=== PATIENT | female | born 1945 | race Caucasian/White ===

== ENCOUNTER 2017-04-21 10:00 | Outpatient (CLI) | payer MEDICARE, OTHER ==
--- NOTE | 2017-04-21 16:03 | DEXA Report ---
DEXA SCAN: 04/21/2017 CLINICAL INDICATION: Postmenopausal. TECHNIQUE: Dual energy x-ray absorptiometry (DXA) was performed on a [employer] system. Regions measured are the AP spine, femoral neck, and, if needed, forearm. COMPARISON: None. In accordance with the International Society for Clinical Densitometry (ISCD) guidelines, data from previous exams may be reanalyzed using current recommendations and techniques. This is done to allow a more accurate basis for comparison with the current study. FINDINGS: The data for the lumbar spine is as follows: REGION BMD (g/cm/cm) T-SCORE Z-SCORE L1 1.264 1.1 2.9 L2 1.387 1.6 3.3 L3 1.408 1.7 3.5 L4 1.375 1.5 3.2 TOTAL 1.364 1.5 3.3 NOTE: All evaluable vertebrae are used for classification. The data for the hip is as follows: REGION BMD (g/cm/cm) T-SCORE Z-SCORE Neck 0.822 -1.6 0.2 TOTAL 0.942 -0.5 1.0 NOTE: The femoral neck or total proximal femur, whichever is lowest, is used for classification. IMPRESSION: THE WHO CLASSIFICATION BASED ON THE INTERNATIONAL REFERENCE STANDARD IS OSTEOPENIA (REFERENCE LEFT FEMORAL NECK). THE FRACTURE RISK IS INCREASED. RECOMMENDATION: Patients with diagnosis of osteoporosis or osteopenia should have regular bone mineral density assessment. For those eligible for Medicare, routine testing is allowed once every 2 years. Testing frequency can be increased for patients who have rapidly progressing disease or for those who are receiving medical therapy to restore bone mass. COMMENT: World Health Organization (WHO) definitions for osteoporosis and osteopenia: NORMAL BMD: T-score at -1.0 or higher, fracture risk is low. OSTEOPENIA BMD: T-score between -1.0 and -2.5, fracture risk is increased. OSTEOPOROSIS BMD: T-score at -2.5 or lower, fracture risk high. National Osteoporosis Foundation recommends: 1. Obtain adequate dietary calcium (at least 1200 mg per day) and vitamin D (400 -800 international units per day). 2. Participate, as appropriate, in regular weightbearing and muscle- strengthening exercise. 3. Avoid tobacco use and reduce alcohol and caffeine intake. 4. For more detailed information see the website at www.NOF.org. MTDD
== END 2017-04-21 10:01 | disposition home or self-care (01) ==
LOC: DI 10:00
PROVIDERS: ATTEND Physician Assistant Medical
DX: M85.88 Other specified disorders of bone density and structure, other site (principal)
CPT/HCPCS: 77080

== ENCOUNTER 2017-04-21 10:02 | Outpatient (CLI) | payer MEDICARE, OTHER ==
--- NOTE | 2017-04-21 12:57 | Mammography Report ---
DIGITAL SCREENING MAMMOGRAM: 04/21/2017 CLINICAL INDICATION: A 71-year-old for screening. COMPARISON: 04/2016, 03/2015, 03/2014. TECHNIQUE: Routine CC and MLO projections were obtained of the breasts. FINDINGS: The breasts again demonstrate scattered fibroglandular densities. Coarse and punctate, ty pically benign calcifications are present. There is possible developing density in the right upper o uter central breast. Further evaluation with spot compression views and possible ultrasound is recom mended. No mammographically suspicious findings are appreciated in the left breast. IMPRESSION: INCOMPLETE EXAMINATION. RECOMMENDATION: Additional evaluation of the right breast as above. BI-RADS category 0, incomplete. STANDARD QUALIFYING STATEMENTS 1. This examination was reviewed with the aid of Computer-Aided Detection (CAD). 2. A negative or benign imaging report should not delay biopsy if clinically suspicious findings are present. Consider surgical consultation if warranted. More than 5% of cancers are not identified by i maging. 3. Dense breasts may obscure an underlying neoplasm. JOB #: [id number] EXT JOB #:[id number]
== END 2017-04-21 10:03 | disposition home or self-care (01) ==
LOC: DI 10:02
PROVIDERS: ATTEND Physician Assistant Medical
DX: Z12.31 Encounter for screening mammogram for malignant neoplasm of breast (principal); R92.8 Other abnormal and inconclusive findings on diagnostic imaging of breast
CPT/HCPCS: 77067

== ENCOUNTER 2017-04-24 07:59 | Outpatient (CLI) | payer MEDICARE, OTHER ==
[2017-04-24 13:00] LABS: BASOPHILS % (AUTO) 0.4 %; EOSINOPHILS # (AUTO) 0.1 10^3/uL (0.0-0.7); EOSINOPHILS % (AUTO) 1.7 %; HCT - HEMATOCRIT 40.1 % (37.0-47.0); HGB - HEMOGLOBIN 13.9 g/dL (12.0-16.0); LYMPHOCYTES # (AUTO) 1.1 10^3/uL (1.5-3.5); MEAN CORPUSCULAR HEMOGLOBIN 30.1 pg (27.0-31.0); MEAN CORPUSCULAR HGB CONC 34.7 g/dL (32.0-36.0); MEAN CORPUSCULAR VOLUME 86.9 fL (81.0-99.0); MEAN PLATELET VOLUME 8.5 fL (7.9-10.8); MONOCYTES # (AUTO) 0.4 10^3/uL (0.0-1.0); MONOCYTES % (AUTO) 8.1 %; NEUTROPHILS # (AUTO) 3.3 10^3/uL (1.5-6.6); NEUTROPHILS % (AUTO) 66.8 %; RED BLOOD COUNT 4.62 10^6/uL (4.20-5.40); RED CELL DISTRIBUTION WIDTH 14.2 % (12.0-15.0); UNCORRECTED WHITE BLOOD COUNT 4.9 x10^3/uL; WHITE BLOOD COUNT 4.9 x10^3/uL (4.8-10.8)
[2017-04-24 13:18] LABS: ALBUMIN/GLOBULIN RATIO 1.6 (1.0-2.2); BILIRUBIN,TOTAL 0.6 mg/dL (0.2-1.0); BUN - BLOOD UREA NITROGEN 17 mg/dL (6-20); CALCIUM 9.8 mg/dL (8.5-10.3); CARBON DIOXIDE - CO2 25 mmol/L (21-32); CHLORIDE 108 mmol/L (101-111); CHOL/HDL RATIO 2.3 (<4.4); CHOLESTEROL 139 mg/dL; CREATININE 0.7 mg/dL (0.4-1.0); GFR - MDRD 83 (>89); GLUCOSE 95 mg/dL (70-100); HDL CHOLESTEROL 60 mg/dL; POTASSIUM 4.4 mmol/L (3.5-5.0); SODIUM 140 mmol/L (135-145); TOTAL PROTEIN 6.8 g/dL (6.7-8.2); TRIGLYCERIDES 104 mg/dL; VLDL CHOLESTEROL 21 mg/dL
== END 2017-04-24 08:00 | disposition home or self-care (01) ==
LOC: LAB.WCP 07:59
PROVIDERS: ATTEND Physician Assistant Medical
DX: E78.2 Mixed hyperlipidemia (principal)
CPT/HCPCS: 36415; 80053; 80061; 85025

== ENCOUNTER 2017-05-27 10:21 | Outpatient (CLI) | payer MEDICARE ==
--- NOTE | 2017-05-27 12:53 | Mammography Report ---
ADDITIONAL VIEWS OF THE RIGHT BREAST: 05/27/2017 CLINICAL HISTORY: A 71-year-old female who had an asymmetrical density at the 10 o'clock position of the right breast on recent screening mammogram dated 10/2017. Patient returns for additional views of the right breast. Patient has no family history of breast cancer. Patient has no breast surgery history. COMPARISON: 02/23/2010, 02/21/2012, 02/22/2013, 04/01/2014, 04/06/2015, 2015, 04/21/2017 TECHNIQUE: Additional views of the right breast were done. These included a right mediolateral view and coned-down compression craniocaudad and oblique lateral views. FINDINGS: Additional views of the right breast once again show an asymmetrical density in the upper outer quadrant of this breast at the 10 o'clock position 4 cm superolateral to the right nipple. The finding remains unchanged on the coned-down compression oblique lateral view, but appears less prominent on the coned-down compression craniocaudad view. There is a circular radiolucency seen within the area of concern that was not noted previously. This finding may represent a subtle sign of benign fat necrosis developing in this region. Recommend a right breast ultrasound to compliment the present study. A few scattered benign-appearing calcifications are noted in the right breast. Breast parenchyma is primarily composed of fat except for the mild glandular hyperplasia and asymmetrical density in the 10 o'clock position of the anterior aspect of the right breast. IMPRESSION: ASYMMETRICAL DENSITY IS ONCE AGAIN SEEN IN THE 10 O'CLOCK POSITION OF THE RIGHT BREAST. RIGHT BREAST ULTRASOUND IS INDICATED FOR FURTHER EVALUATION. RIGHT BREAST ULTRASOUND WILL BE DONE TODAY PART OF PATIENT'S EVALUATION. BIRADS CATEGORY 0 - INCOMPLETE. NEEDS ADDITIONAL IMAGING EVALUATION. RIGHT BREAST ULTRASOUND. JOB #: [id number] EXT JOB #: [id number] [facility]
--- NOTE | 2017-05-28 09:16 | Ultrasound Report ---
RIGHT BREAST ULTRASOUND: 05/27/2017 CLINICAL HISTORY: A 71-year-old female who recently developed an asymmetrical density in the upper outer quadrant of the right breast on a screening mammogram from April 2017. Additional views of the right breast suggested the possibility of an area of benign fat necrosis. In questioning the patient in regard to recent trauma to the breast, patient reported that she had significant trauma to the right breast approximately a year ago with a large palpable hematoma. This hematoma gradually decreased in size and its remnant appears to reside in the area where the finding of concern is noted in the right breast on recent mammogram within the 10 o'clock position. Patient has a past history of aortic valve replacement with a [employer] valve. She is on warfarin anticoagulation. RIGHT BREAST ULTRASOUND FINDINGS: A mildly complex mass is noted in the 10 o' clock position of the right breast 6 cm from the nipple. This mass measures 1.9 x 1.0 cm. There is a small cystic region within the medial superior aspect of the mass. There is a noted shadowing posterior to the mass. Considering patient's clinical history, primary consideration is a benign area of fat necrosis and/or old hematoma. A secondary consideration is an atypical degenerating fibroadenoma or a carcinoma. Options for further workup in this patient who has a low probability of malignancy include a breast MRI or some form of biopsy such as a needle aspiration biopsy under ultrasound guidance. A core biopsy would require the patient to be off of her anticoagulants and on a Lovenox bridge. In discussing this with the patient, she was hesitant to do it , especially because of the low suspicion of malignancy. After extensive discussion with the patient, she preferred a breast MRI. After researching the literature, a breast MRI could be safely done on this patient in a 1.5 Rajani scanner as is present in the Radiology Department at [facility]. IMPRESSION: A 1.9 X 1.0 X 2.0 CM MINIMALLY COMPLEX MASS IS NOTED IN THE 10 O' CLOCK POSITION OF THE RIGHT BREAST. PRIMARY CONSIDERATION FOR THIS FINDING IS AN AREA OF BENIGN FAT NECROSIS OR OLD HEMATOMA, CONSIDERING PATIENT'S CLINICAL HISTORY. OPTIONS FOR FURTHER WORKUP ARE DISCUSSED ABOVE WITH THE PATIENT'S PREFERENCE BEING A CONTRAST-ENHANCED BREAST MRI. BIRADS CATEGORY 0 - INCOMPLETE. NEEDS ADDITIONAL IMAGING EVALUATION. BILATERAL BREAST MRI IS RECOMMENDED FOR FURTHER EVALUATION. COMMENT: Dr. Sawyer had an extensive discussion with the patient regarding the present findings and options for further workup including finding out the patient's preference for further workup. Also, Dr. Sawyer informed the patient 's health care provider, Jazzy Myers, Physician's Event Manager, of the above findings and recommendations. This was done on 05/27/2017 at 2:40 p.m. JOB #: [id number] EXT JOB #: [id number] [facility]
== END 2017-05-27 10:22 | disposition home or self-care (01) ==
LOC: DI 10:21
PROVIDERS: ATTEND Physician Assistant Medical
DX: N63 Unspecified lump in breast (principal)
CPT/HCPCS: 76642; G0206

== ENCOUNTER 2017-06-06 11:27 | Outpatient (CLI) | payer MEDICARE, OTHER ==
[2017-06-06 19:42] LABS: POTASSIUM 4.1 mmol/L (3.5-5.0)
[2017-06-06 19:43] LABS: CALCIUM 9.9 mg/dL (8.5-10.3); CREATININE 0.8 mg/dL (0.4-1.0)
== END 2017-06-06 11:28 | disposition home or self-care (01) ==
LOC: LAB.WCP 11:27
PROVIDERS: ATTEND Family Medicine
DX: N63 Unspecified lump in breast (principal)
CPT/HCPCS: 36415; 80048

== ENCOUNTER 2017-06-09 07:47 | Outpatient (CLI) | payer MEDICARE, OTHER ==
[2017-06-09] MEDS ORDERED: GADOBUTROL 7.5 MMOL/7.5 ML VIAL IVP ONE (08:52)
--- NOTE | 2017-06-09 13:19 | MRI Report ---
MRI BILATERAL BREASTS WITH AND WITHOUT CONTRAST: 06/09/2017 CLINICAL INDICATION: Likely old hematoma with fat necrosis on mammogram and ultrasound, further evaluation. TECHNIQUE: Using a dedicated breast coil, axial precontrast STIR, T1, dynamic postcontrast axial 3D images, axial 3D high-resolution images, and postcontrast diffusion-weighted images were obtained. Six mL of Gadavist was administered intravenously. Post-processing with dynamic contrast enhancement analysis and multiplanar reformations were performed with Gruvie. FINDINGS: Right breast: There is no significant background parenchymal enhancement. In the right upper outer quadrant, at the site of the mammographic and ultrasound abnormality, there is a small focus of necrosis with surrounding old hematoma, which demonstrates precontrast T1 hyperintensity, with no contrast enhancement following Gadavist administration. Right axillary lymph nodes are morphologically normal. Left breast: The left breast demonstrates no significant background parenchymal enhancement. No suspicious mass or abnormal enhancement is identified. Postoperative changes of previous cardiac surgery are incidentally noted. IMPRESSION: BENIGN FINDINGS. RECOMMENDATION: The patient can return to routine annual screening mammography , unless otherwise clinically indicated. BIRADS CATEGORY 2 - BENIGN FINDINGS. The patient has been instructed to obtain results from Ursula Myers PA-C, in five business days. COMMENT: Breast MRI is a highly sensitive examination, and has a cancer detection threshold down to approximately 5 mm; however, it only has moderate specificity. Although breast MRI has a high negative predictive value, appropriate clinical and mammographic followup are always necessary. MRI may miss less angiogenic tumors; therefore, it should not be used to avoid a biopsy which is otherwise clinically indicated. Normal-appearing lymph nodes may contain microscopic tumor. Due to prone positioning, the described location of findings may differ from other modalities. JOB #: [id number] EXT JOB #: [id number] FRANCISCO JAVIER
== END 2017-06-09 07:48 | disposition home or self-care (01) ==
LOC: DI 07:47
PROVIDERS: ATTEND Physician Assistant Medical
DX: N63 Unspecified lump in breast (principal)
CPT/HCPCS: A9585; C8908; 77059

== ENCOUNTER 2018-04-27 08:00 | Outpatient (CLI) | payer MEDICARE, OTHER | END 2018-04-27 08:01 | disposition home or self-care (01) | LOC: LAB.WCP 08:00 | PROVIDERS: ATTEND Physician Assistant Medical | DX: R30.0 Dysuria (principal) | CPT/HCPCS: 87077; 87086; 87181 ==

== ENCOUNTER 2018-05-15 08:00 | Outpatient (CLI) | payer MEDICARE, OTHER ==
[2018-05-15 12:23] LABS: BASOPHILS % (AUTO) 0.5 %; EOSINOPHILS # (AUTO) 0.1 10^3/uL (0.0-0.7); EOSINOPHILS % (AUTO) 1.5 %; HGB - HEMOGLOBIN 13.4 g/dL (12.0-16.0); LYMPHOCYTES # (AUTO) 1.2 10^3/uL (1.5-3.5); LYMPHOCYTES % (AUTO) 20.5 %; MEAN CORPUSCULAR HEMOGLOBIN 30.2 pg (27.0-31.0); MEAN CORPUSCULAR HGB CONC 33.9 g/dL (32.0-36.0); MEAN PLATELET VOLUME 8.3 fL (7.9-10.8); MONOCYTES # (AUTO) 0.4 10^3/uL (0.0-1.0); MONOCYTES % (AUTO) 7.3 %; NEUTROPHILS % (AUTO) 70.2 %; PLT - PLATELET COUNT 192 10^3/uL (130-450); RED BLOOD COUNT 4.43 10^6/uL (4.20-5.40); RED CELL DISTRIBUTION WIDTH 14.9 % (12.0-15.0); WHITE BLOOD COUNT 5.8 x10^3/uL (4.8-10.8)
[2018-05-15 13:09] LABS: ALBUMIN/GLOBULIN RATIO 1.2 (1.0-2.2); ALKALINE PHOSPHATASE 50 IU/L (42-121); ALT ALANINE AMINOTRANSFERASE 18 IU/L (10-60); AST ASPARTATE AMINOTRANSFERASE 19 IU/L (10-42); BILIRUBIN,TOTAL 0.7 mg/dL (0.2-1.0); BUN - BLOOD UREA NITROGEN 15 mg/dL (6-20); CALCIUM 9.8 mg/dL (8.5-10.3); CARBON DIOXIDE - CO2 27 mmol/L (21-32); CHLORIDE 106 mmol/L (101-111); CHOL/HDL RATIO 2.1 (<4.4); CHOLESTEROL 132 mg/dL; CREATININE 0.8 mg/dL (0.4-1.0); GFR - MDRD 71 (>89); GLUCOSE 90 mg/dL (70-100); HDL CHOLESTEROL 63 mg/dL; LDL CHOLESTEROL,CALCULATED 46 mg/dL; LDL/HDL RATIO 0.7 (<4.4); SODIUM 139 mmol/L (135-145); TOTAL PROTEIN 7.3 g/dL (6.7-8.2); VLDL CHOLESTEROL 23 mg/dL
== END 2018-05-15 08:01 | disposition home or self-care (01) ==
LOC: LAB.WCP 08:00
PROVIDERS: ATTEND Physician Assistant Medical
DX: E78.2 Mixed hyperlipidemia (principal); C44.92 Squamous cell carcinoma of skin, unspecified
CPT/HCPCS: 36415; 80053; 80061; 83721; 85025

== ENCOUNTER 2018-06-05 08:45 | Outpatient (CLI) | payer MEDICARE, OTHER ==
--- NOTE | 2018-06-08 12:06 | Mammography Report ---
Procedure Date: 06/05/2018 Accession Number: [id number] / [id number] Procedure: MGN - Screening Mammo Dig Bilat CPT Code: FULL RESULT: EXAM: Screening Mammo Dig Bilat DATE: 06/05/2018 9:15 AM CLINICAL HISTORY: 72-year-old female presents for screening mammography. TECHNIQUE: Bilateral CC and MLO views were obtained. COMPARISON: 05/27/2017, 04/21/2017, 04/15/2016, 04/06/2015. FINDINGS: The breasts demonstrate scattered fibroglandular densities bilaterally. The right breast contains a stable mass, identified and characterized by MRI in 2017 as fat necrosis. Typically benign vascular calcifications are seen bilaterally. Coarse typically benign calcifications are seen bilaterally. No suspicious masses, clustered microcalcifications, or regions of architectural distortion are identified. IMPRESSION: Benign findings RECOMMENDATION: Routine annual screening unless otherwise clinically indicated. BIRADS CATEGORY 2: Benign findings STANDARD QUALIFYING STATEMENTS: 1. This examination was reviewed with the aid of Computer-Aided Detection (CAD). 2. A negative or benign imaging report should not delay biopsy if clinically suspicious findings are present. Consider surgical consultation if warrented. More than 5% of cancers are not identified by imaging. 3. Dense breasts may obscure an underlying neoplasm.
== END 2018-06-05 08:46 | disposition home or self-care (01) ==
LOC: DI.N 08:45
PROVIDERS: ATTEND Radiology Diagnostic Radiology
DX: Z12.31 Encounter for screening mammogram for malignant neoplasm of breast (principal)
CPT/HCPCS: 77067

== ENCOUNTER 2019-01-15 08:00 | Outpatient (CLI) | payer MEDICARE, OTHER | END 2019-01-15 23:59 | disposition home or self-care (01) | LOC: LAB.WCP 08:00 | PROVIDERS: ATTEND Family Medicine | DX: Z51.81 Encounter for therapeutic drug level monitoring (principal); Z95.2 Presence of prosthetic heart valve; Z79.01 Long term (current) use of anticoagulants ==

== ENCOUNTER 2019-01-28 08:00 | Outpatient (CLI) | payer MEDICARE, OTHER | END 2019-01-28 23:59 | disposition home or self-care (01) | LOC: LAB.WCP 08:00 | PROVIDERS: ATTEND Physician Assistant Medical | DX: Z95.2 Presence of prosthetic heart valve (principal); Z79.01 Long term (current) use of anticoagulants | CPT/HCPCS: 81025 ==

== ENCOUNTER 2019-02-04 08:00 | Outpatient (CLI) | payer MEDICARE, OTHER | END 2019-02-04 23:59 | disposition home or self-care (01) | LOC: LAB.WCP 08:00 | PROVIDERS: ATTEND Physician Assistant Medical | DX: Z51.81 Encounter for therapeutic drug level monitoring (principal); Z95.2 Presence of prosthetic heart valve; Z79.01 Long term (current) use of anticoagulants ==

== ENCOUNTER 2019-02-12 08:00 | Outpatient (CLI) | payer MEDICARE, OTHER | END 2019-02-12 23:59 | disposition home or self-care (01) | LOC: LAB.WCP 08:00 | PROVIDERS: ATTEND Physician Assistant Medical | DX: Z95.2 Presence of prosthetic heart valve (principal); Z79.01 Long term (current) use of anticoagulants | CPT/HCPCS: 81025 ==

== ENCOUNTER 2019-04-01 10:00 | Outpatient (CLI) | payer MEDICARE, OTHER | END 2019-04-01 10:01 | disposition home or self-care (01) | LOC: LAB.WCP 10:00 | PROVIDERS: ATTEND Physician Assistant Medical | DX: N39.0 Urinary tract infection, site not specified (principal) | CPT/HCPCS: 87086 ==

== ENCOUNTER 2019-06-16 09:03 | Outpatient (CLI) | payer MEDICARE, OTHER ==
--- NOTE | 2019-06-16 09:47 | Mammography Report ---
Reason: SCREENING MAMMO Procedure Date: 06/16/2019 Accession Number: [id number] / [id number] Procedure: MGN - Screening Mammo Dig Bilat CPT Code: FULL RESULT: EXAM: Screening Mammo Dig Bilat DATE: 06/16/2019 9:37 AM CLINICAL HISTORY: Screening encounter. TECHNIQUE: (B) - Bilateral CC and MLO views were obtained. COMPARISON: 06/05/2018 through 03/29/2015. PARENCHYMAL PATTERN: (A) - The breast(s) demonstrate(s) scattered fibroglandular densities. FINDINGS: There are typically benign vascular and typically benign coarse calcifications. There are no suspicious masses, calcifications, or areas of distortion. IMPRESSION: Benign findings. BI-RADS category 2. RECOMMENDATION: (ANNUAL) - Recommend routine annual screening mammography. BI-RADS CATEGORY: (2) - Benign Findings. STANDARD QUALIFYING STATEMENTS: 1. This examination was not reviewed with the aid of Computer-Aided Detection (CAD). 2. A negative or benign imaging report should not preclude biopsy if clinically suspicious findings are present. 3. Dense breasts may obscure an underlying neoplasm. 4. This examination was reviewed without the aid of 3D breast imaging (tomosynthesis).
== END 2019-06-16 09:04 | disposition home or self-care (01) ==
LOC: DI.N 09:03
DX: Z12.31 Encounter for screening mammogram for malignant neoplasm of breast (principal)
CPT/HCPCS: 77067

== ENCOUNTER 2019-06-30 10:19 | Outpatient (CLI) | payer MEDICARE, OTHER ==
--- NOTE | 2019-06-30 14:32 | DEXA Report ---
Reason: POSTMENOPAUSAL STATUS Procedure Date: 06/30/2019 Accession Number: [id number] / [id number] Procedure: DEX - Dexa Spine and/or Hip CPT Code: FULL RESULT: EXAM: Dexa Spine and/or Hip DATE: 06/30/2019 10:59 AM CLINICAL HISTORY: POSTMENOPAUSAL STATUS TECHNIQUE: Dual energy x-ray absorptiometry (DXA) was performed on a [employer] System. Regions measured are the AP Spine, femoral neck, and if needed forearm. COMPARISON: 04/21/2017 In accordance with the International Society for Clinical Densitometry (ISCD) guidelines, data from previous exams may be reanalyzed using current recommendations and techniques. This is done to allow a more accurate basis for comparison with the current study. FINDINGS: The data for the lumbar spine is as follows: BMD (g/cm/cm) T-SCORE Z-SCORE REGION L1 1.324 1.6 3.5 L2 1.397 1.6 3.5 L3 1.410 1.8 3.6 L4 1.303 0.9 2.7 TOTAL 1.356 1.5 3.3 NOTE: All evaluable vertebrae are used for classification The data for the hip is as follows: BMD (g/cm/cm) T-SCORE Z-SCORE REGION Neck 0.829 -1.5 0.4 TOTAL 0.932 -0.6 1.1 NOTE: The femoral neck or total proximal femur, whichever is lowest, is used for classification. DXA RESULTS SUMMARY: Spine SCAN DATE AGE BMD CHANGE VS CHANGE VS PREVIOUS PREVIOUS % 8/30/2019 [age] 1.356 -0.008 -0.6 04/21/2017 [age] 1.364 * Denotes significant change at the 95% confidence level. Denotes dissimilar scan types or analysis methods. DXA RESULTS SUMMARY: Hip SCAN DATE AGE BMD CHANGE VS CHANGE VS PREVIOUS PREVIOUS % 8[birth year]30[birth year]2019 73.7 0.932 -0.010 -1.1 04/21/2017 [age] 0.942 * Denotes significant change at the 95% confidence level. Denotes dissimilar scan types or analysis methods. IMPRESSION: THE WHO CLASSIFICATION BASED ON THE INTERNATIONAL REFERENCE STANDARD IS OSTEOPENIA. THE FRACTURE RISK IS INCREASED. RECOMMENDATION: Patients with diagnosis of osteoporosis or osteopenia should have regular bone mineral density assessment. For those eligible for Medicare, routine testing is allowed once every 2 years. Testing frequency can be increased for patients who have rapidly progressing disease or for those who are receiving medical therapy to restore bone mass. COMMENT: World Health Organization (WHO) definitions for osteoporosis and osteopenia: NORMAL BMD: T-score at -1.0 or higher, fracture risk is low OSTEOPENIA BMD: T-score between -1.0 and -2.5, fracture risk is increased. OSTEOPOROSIS BMD: T-score at -2.5 or lower, fracture risk is high. National Osteoporosis Foundation recommends: 1. Obtain adequate dietary calcium (at least 1200 mg per day) and vitamin D (400-800 international units per day). 2. Participate, as appropriate, in regular weightbearing and muscle-strengthening exercise. 3. Avoid tobacco use and reduce alcohol and caffeine intake. 4. For more detailed information see the website at www.NOF.org.
== END 2019-06-30 10:20 | disposition home or self-care (01) ==
LOC: DI 10:19
PROVIDERS: ATTEND Physician Assistant Medical
DX: M85.88 Other specified disorders of bone density and structure, other site (principal)
CPT/HCPCS: 77080

== ENCOUNTER 2019-07-05 08:00 | Outpatient (CLI) | payer MEDICARE, OTHER | END 2019-07-05 23:59 | disposition home or self-care (01) | LOC: LAB.WCP 08:00 | PROVIDERS: ATTEND Physician Assistant Medical | DX: Z95.2 Presence of prosthetic heart valve (principal); Z79.01 Long term (current) use of anticoagulants ==

== ENCOUNTER 2019-07-08 08:00 | Outpatient (CLI) | payer MEDICARE, OTHER ==
[2019-07-08 12:34] LABS: BASOPHILS % (AUTO) 0.4 %; EOSINOPHILS # (AUTO) 0.1 10^3/uL (0.0-0.7); EOSINOPHILS % (AUTO) 2.6 %; HGB - HEMOGLOBIN 13.8 g/dL (12.0-16.0); LYMPHOCYTES # (AUTO) 1.1 10^3/uL (1.5-3.5); LYMPHOCYTES % (AUTO) 22.2 %; MEAN CORPUSCULAR HEMOGLOBIN 30.6 pg (27.0-31.0); MEAN CORPUSCULAR HGB CONC 34.1 g/dL (32.0-36.0); MEAN CORPUSCULAR VOLUME 89.8 fL (81.0-99.0); MEAN PLATELET VOLUME 10.3 fL (7.9-10.8); MONOCYTES # (AUTO) 0.4 10^3/uL (0.0-1.0); MONOCYTES % (AUTO) 7.9 %; NEUTROPHILS # (AUTO) 3.4 10^3/uL (1.5-6.6); NEUTROPHILS % (AUTO) 66.7 %; PLT - PLATELET COUNT 160 10^3/uL (130-450); RED BLOOD COUNT 4.51 10^6/uL (4.20-5.40); WHITE BLOOD COUNT 5.1 x10^3/uL (4.8-10.8)
[2019-07-08 12:55] LABS: ALBUMIN 4.5 g/dL (3.2-5.5); ALBUMIN/GLOBULIN RATIO 1.5 (1.0-2.2); ALKALINE PHOSPHATASE 51 IU/L (42-121); ALT ALANINE AMINOTRANSFERASE 17 IU/L (10-60); AST ASPARTATE AMINOTRANSFERASE 19 IU/L (10-42); BILIRUBIN,TOTAL 0.8 mg/dL (0.2-1.0); BUN - BLOOD UREA NITROGEN 11 mg/dL (6-20); CALCIUM 9.8 mg/dL (8.5-10.3); CARBON DIOXIDE - CO2 26 mmol/L (21-32); CHLORIDE 106 mmol/L (101-111); CHOL/HDL RATIO 2.2 (<4.4); CHOLESTEROL 142 mg/dL; CREATININE 0.8 mg/dL (0.4-1.0); GFR - MDRD 71 (>89); GLUCOSE 96 mg/dL (70-100); HDL CHOLESTEROL 64 mg/dL; LDL CHOLESTEROL,CALCULATED 54 mg/dL; LDL/HDL RATIO 0.8 (<4.4); SODIUM 140 mmol/L (135-145); TOTAL PROTEIN 7.5 g/dL (6.7-8.2); VLDL CHOLESTEROL 24 mg/dL
== END 2019-07-08 23:59 | disposition home or self-care (01) ==
LOC: LAB.WCP 08:00
PROVIDERS: ATTEND Physician Assistant Medical
DX: R60.9 Edema, unspecified (principal); E78.2 Mixed hyperlipidemia; C44.92 Squamous cell carcinoma of skin, unspecified; Z95.2 Presence of prosthetic heart valve; M81.0 Age-related osteoporosis without current pathological fracture
CPT/HCPCS: 36415; 80053; 80061; 83721; 84443; 85025

== ENCOUNTER 2019-08-02 08:00 | Outpatient (CLI) | payer MEDICARE, OTHER | END 2019-08-02 23:59 | disposition home or self-care (01) | LOC: LAB.WCP 08:00 | PROVIDERS: ATTEND Physician Assistant Medical | DX: Z95.2 Presence of prosthetic heart valve (principal); Z79.01 Long term (current) use of anticoagulants ==

== ENCOUNTER 2019-09-27 08:00 | Outpatient (CLI) | payer MEDICARE, OTHER | END 2019-09-27 23:59 | disposition home or self-care (01) | LOC: LAB.WCP 08:00 | PROVIDERS: ATTEND Physician Assistant Medical | DX: Z95.2 Presence of prosthetic heart valve (principal); Z79.01 Long term (current) use of anticoagulants ==

== ENCOUNTER 2019-10-25 08:00 | Outpatient (CLI) | payer MEDICARE, OTHER | END 2019-10-25 23:59 | disposition home or self-care (01) | LOC: LAB.WCP 08:00 | PROVIDERS: ATTEND Physician Assistant Medical | DX: Z79.01 Long term (current) use of anticoagulants (principal); Z95.2 Presence of prosthetic heart valve ==

== ENCOUNTER 2019-11-22 08:00 | Outpatient (CLI) | payer MEDICARE, OTHER | END 2019-11-22 23:59 | disposition home or self-care (01) | LOC: LAB.WCP 08:00 | PROVIDERS: ATTEND Physician Assistant Medical | DX: Z95.2 Presence of prosthetic heart valve (principal); Z79.01 Long term (current) use of anticoagulants ==

== ENCOUNTER 2019-11-29 08:00 | Outpatient (CLI) | payer MEDICARE, OTHER | END 2019-11-29 23:59 | disposition home or self-care (01) | LOC: LAB.WCP 08:00 | PROVIDERS: ATTEND Physician Assistant Medical | DX: Z95.2 Presence of prosthetic heart valve (principal); Z79.01 Long term (current) use of anticoagulants ==

== ENCOUNTER 2019-12-13 08:00 | Outpatient (CLI) | payer MEDICARE, OTHER | END 2019-12-13 23:59 | disposition home or self-care (01) | LOC: LAB.WCP 08:00 | PROVIDERS: ATTEND Physician Assistant Medical | DX: Z95.2 Presence of prosthetic heart valve (principal) ==

== ENCOUNTER 2019-12-27 10:32 | Outpatient (CLI) | payer MEDICARE, OTHER | END 2019-12-27 10:33 | disposition home or self-care (01) | LOC: LAB.WCP 10:32 | PROVIDERS: ATTEND Physician Assistant Medical | DX: Z95.2 Presence of prosthetic heart valve (principal); Z79.01 Long term (current) use of anticoagulants ==

== ENCOUNTER 2020-01-17 08:00 | Outpatient (CLI) | payer MEDICARE, OTHER | END 2020-01-17 23:59 | disposition home or self-care (01) | LOC: LAB.WCP 08:00 | PROVIDERS: ATTEND Physician Assistant Medical | DX: Z95.2 Presence of prosthetic heart valve (principal); Z79.01 Long term (current) use of anticoagulants ==

== ENCOUNTER 2020-02-14 08:00 | Outpatient (CLI) | payer MEDICARE, OTHER | END 2020-02-14 23:59 | disposition home or self-care (01) | LOC: LAB.WCP 08:00 | PROVIDERS: ATTEND Physician Assistant Medical | DX: Z95.2 Presence of prosthetic heart valve (principal); Z79.01 Long term (current) use of anticoagulants ==

== ENCOUNTER 2020-03-14 08:00 | Outpatient (CLI) | payer MEDICARE, OTHER | END 2020-03-14 23:59 | disposition home or self-care (01) | LOC: LAB.WCP 08:00 | PROVIDERS: ATTEND Physician Assistant Medical | DX: Z95.2 Presence of prosthetic heart valve (principal); Z79.01 Long term (current) use of anticoagulants ==

== ENCOUNTER 2020-04-11 08:00 | Outpatient (CLI) | payer MEDICARE, OTHER | END 2020-04-11 23:59 | disposition home or self-care (01) | LOC: LAB.WCP 08:00 | PROVIDERS: ATTEND Physician Assistant Medical | DX: Z95.2 Presence of prosthetic heart valve (principal); Z79.01 Long term (current) use of anticoagulants ==

== ENCOUNTER 2020-04-15 08:00 | Outpatient (CLI) | payer MEDICARE, OTHER ==
[2020-04-15 15:02] LABS: BILIRUBIN,URINE NEGATIVE (NEGATIVE); GLUCOSE, URINE (UA) NEGATIVE (NEGATIVE); KETONES,URINE (UA) TRACE mg/dL (NEGATIVE); LEUKOCYTE ESTERASE, URINE LARGE (NEGATIVE); NITRITE,URINE NEGATIVE (NEGATIVE); OCCULT BLOOD,URINE SMALL (NEGATIVE); PROTEIN,URINE NEGATIVE (NEGATIVE); UROBILINOGEN,URINE 0.2 (NORMAL) E.U./dL (NORMAL)
[2020-04-15 15:37] LABS: CLARITY,URINE HAZY (CLEAR)
[2020-04-15 15:55] LABS: RBC,URINE TNTC /HPF (0-5); SQUAMOUS EPITHELIAL CELL,UR RARE Squamous (<= Few)
[2020-04-15 15:56] LABS: BACTERIA,URINE Few /HPF (None Seen); WBC CLUMPS,URINE PRESENT
== END 2020-04-15 23:59 | disposition home or self-care (01) ==
LOC: LAB.R 08:00
PROVIDERS: ATTEND Family Medicine
DX: R30.0 Dysuria (principal)
CPT/HCPCS: 81001; 81003; 87086; 87181

== ENCOUNTER 2020-04-24 08:00 | Outpatient (CLI) | payer MEDICARE, OTHER | END 2020-04-24 23:59 | disposition home or self-care (01) | LOC: LAB.WCP 08:00 | PROVIDERS: ATTEND Physician Assistant Medical | DX: Z95.2 Presence of prosthetic heart valve (principal); Z79.01 Long term (current) use of anticoagulants ==

== ENCOUNTER 2020-05-22 08:00 | Outpatient (CLI) | payer MEDICARE, OTHER | END 2020-05-22 23:59 | disposition home or self-care (01) | LOC: LAB.WCP 08:00 | PROVIDERS: ATTEND Physician Assistant Medical | DX: Z95.2 Presence of prosthetic heart valve (principal); Z79.01 Long term (current) use of anticoagulants ==

== ENCOUNTER 2020-06-19 08:00 | Outpatient (CLI) | payer MEDICARE, OTHER | END 2020-06-19 23:59 | disposition home or self-care (01) | LOC: LAB.WCP 08:00 | PROVIDERS: ATTEND Physician Assistant Medical | DX: Z95.2 Presence of prosthetic heart valve (principal); Z79.01 Long term (current) use of anticoagulants ==

== ENCOUNTER 2020-07-04 07:00 | Outpatient (CLI) | payer MEDICARE, OTHER | END 2020-07-04 23:59 | disposition home or self-care (01) | LOC: LAB.R 07:00 | PROVIDERS: ATTEND Physician Assistant Medical | DX: R30.0 Dysuria (principal) | CPT/HCPCS: 87077; 87086 ==

== ENCOUNTER 2020-08-01 08:00 | Outpatient (CLI) | payer MEDICARE, OTHER | END 2020-08-01 23:59 | disposition home or self-care (01) | LOC: LAB.WCP 08:00 | PROVIDERS: ATTEND Physician Assistant Medical | DX: Z95.2 Presence of prosthetic heart valve (principal); Z79.01 Long term (current) use of anticoagulants ==

== ENCOUNTER 2020-08-29 08:00 | Outpatient (CLI) | payer MEDICARE, OTHER | END 2020-08-29 23:59 | disposition home or self-care (01) | LOC: LAB.WCP 08:00 | PROVIDERS: ATTEND Physician Assistant Medical | DX: Z79.01 Long term (current) use of anticoagulants (principal) ==

== ENCOUNTER 2020-09-25 08:00 | Outpatient (CLI) | payer MEDICARE, OTHER | END 2020-09-25 23:59 | disposition home or self-care (01) | LOC: LAB.WCP 08:00 | PROVIDERS: ATTEND Physician Assistant | DX: Z79.01 Long term (current) use of anticoagulants (principal) ==

== ENCOUNTER 2020-11-20 08:00 | Outpatient (CLI) | payer MEDICARE, OTHER | END 2020-11-20 23:59 | disposition home or self-care (01) | LOC: LAB.N 08:00 | PROVIDERS: ATTEND Physician Assistant Medical | DX: Z79.01 Long term (current) use of anticoagulants (principal) ==

== ENCOUNTER 2020-12-19 08:00 | Outpatient (CLI) | payer MEDICARE, OTHER ==
[2020-12-19 12:30] LABS: BASOPHILS % (AUTO) 0.6 %; EOSINOPHILS # (AUTO) 0.1 10^3/uL (0.0-0.7); EOSINOPHILS % (AUTO) 1.7 %; HGB - HEMOGLOBIN 13.8 g/dL (12.0-16.0); LYMPHOCYTES # (AUTO) 1.2 10^3/uL (1.5-3.5); LYMPHOCYTES % (AUTO) 25.3 %; MEAN CORPUSCULAR HEMOGLOBIN 30.4 pg (27.0-31.0); MEAN CORPUSCULAR HGB CONC 33.2 g/dL (32.0-36.0); MEAN CORPUSCULAR VOLUME 91.6 fL (81.0-99.0); MEAN PLATELET VOLUME 9.9 fL (7.9-10.8); MONOCYTES # (AUTO) 0.4 10^3/uL (0.0-1.0); MONOCYTES % (AUTO) 8.8 %; NEUTROPHILS % (AUTO) 63.4 %; PLT - PLATELET COUNT 182 10^3/uL (130-450); RED BLOOD COUNT 4.54 10^6/uL (4.20-5.40); RED CELL DISTRIBUTION WIDTH 13.9 % (12.0-15.0); WHITE BLOOD COUNT 4.8 x10^3/uL (4.8-10.8)
[2020-12-19 13:23] LABS: ALBUMIN 4.4 g/dL (3.2-5.5); ALBUMIN/GLOBULIN RATIO 1.6 (1.0-2.2); BILIRUBIN,TOTAL 0.8 mg/dL (0.2-1.0); CREATININE 0.9 mg/dL (0.4-1.0); TOTAL PROTEIN 7.1 g/dL (6.7-8.2)
[2020-12-19 13:57] LABS: CALCIUM 9.9 mg/dL (8.5-10.3)
== END 2020-12-19 23:59 | disposition home or self-care (01) ==
LOC: LAB.WCP 08:00
PROVIDERS: ATTEND Otolaryngology Otology & Neurotology
DX: Z01.812 Encounter for preprocedural laboratory examination (principal)
CPT/HCPCS: 36415; 80053; 85025

== ENCOUNTER 2020-12-22 08:00 | Outpatient (CLI) | payer MEDICARE, OTHER | END 2020-12-22 23:59 | disposition home or self-care (01) | LOC: LAB.N 08:00 | PROVIDERS: ATTEND Physician Assistant Medical | DX: Z79.01 Long term (current) use of anticoagulants (principal) ==

== ENCOUNTER 2020-12-29 08:00 | Outpatient (CLI) | payer MEDICARE, OTHER | END 2020-12-29 23:59 | disposition home or self-care (01) | LOC: LAB.WCP 08:00 | PROVIDERS: ATTEND Physician Assistant Medical | DX: Z79.01 Long term (current) use of anticoagulants (principal); Z95.2 Presence of prosthetic heart valve ==

== ENCOUNTER 2021-01-08 08:00 | Outpatient (CLI) | payer MEDICARE, OTHER | END 2021-01-08 23:59 | disposition home or self-care (01) | LOC: LAB.N 08:00 | PROVIDERS: ATTEND Physician Assistant Medical | DX: Z95.2 Presence of prosthetic heart valve (principal); Z79.01 Long term (current) use of anticoagulants ==

== ENCOUNTER 2021-01-15 08:00 | Outpatient (CLI) | payer MEDICARE, OTHER | END 2021-01-15 23:59 | disposition home or self-care (01) | LOC: LAB.WCP 08:00 | PROVIDERS: ATTEND Physician Assistant Medical | DX: Z79.01 Long term (current) use of anticoagulants (principal) ==

== ENCOUNTER 2021-01-29 08:00 | Outpatient (CLI) | payer MEDICARE, OTHER | END 2021-01-29 23:59 | disposition home or self-care (01) | LOC: LAB.WCP 08:00 | PROVIDERS: ATTEND Physician Assistant Medical | DX: Z79.01 Long term (current) use of anticoagulants (principal); Z95.2 Presence of prosthetic heart valve ==

== ENCOUNTER 2021-02-26 08:00 | Outpatient (CLI) | payer MEDICARE, OTHER | END 2021-02-26 23:59 | disposition home or self-care (01) | LOC: LAB.N 08:00 | PROVIDERS: ATTEND Physician Assistant Medical | DX: Z95.2 Presence of prosthetic heart valve (principal); Z79.01 Long term (current) use of anticoagulants ==

== ENCOUNTER 2021-03-14 08:00 | Outpatient (CLI) | payer MEDICARE, OTHER | END 2021-03-14 23:59 | disposition home or self-care (01) | LOC: LAB.N 08:00 | PROVIDERS: ATTEND Physician Assistant Medical | DX: Z95.2 Presence of prosthetic heart valve (principal); Z79.01 Long term (current) use of anticoagulants ==

== ENCOUNTER 2021-04-04 08:00 | Outpatient (CLI) | payer MEDICARE, OTHER | END 2021-04-04 23:59 | disposition home or self-care (01) | LOC: LAB.N 08:00 | PROVIDERS: ATTEND Physician Assistant Medical | DX: Z79.01 Long term (current) use of anticoagulants (principal); Z95.2 Presence of prosthetic heart valve ==

== ENCOUNTER 2021-04-16 08:00 | Outpatient (CLI) | payer MEDICARE, OTHER | END 2021-04-16 23:59 | disposition home or self-care (01) | LOC: LAB.N 08:00 | PROVIDERS: ATTEND Physician Assistant Medical | DX: Z95.2 Presence of prosthetic heart valve (principal); Z79.01 Long term (current) use of anticoagulants ==

== ENCOUNTER 2021-05-07 08:00 | Outpatient (CLI) | payer MEDICARE, OTHER | END 2021-05-07 23:59 | disposition home or self-care (01) | LOC: LAB.N 08:00 | PROVIDERS: ATTEND Physician Assistant Medical | DX: Z95.2 Presence of prosthetic heart valve (principal); Z79.01 Long term (current) use of anticoagulants ==

== ENCOUNTER 2021-05-21 08:00 | Outpatient (CLI) | payer MEDICARE, OTHER | END 2021-05-21 23:59 | disposition home or self-care (01) | LOC: LAB.WCP 08:00 | PROVIDERS: ATTEND Physician Assistant Medical | DX: Z95.2 Presence of prosthetic heart valve (principal); Z79.01 Long term (current) use of anticoagulants ==

== ENCOUNTER 2021-05-25 07:32 | Outpatient (CLI) | payer MEDICARE, OTHER ==
[2021-05-25 12:23] LABS: ALBUMIN 4.4 g/dL (3.2-5.5); ALBUMIN/GLOBULIN RATIO 1.8 (1.0-2.2); ALKALINE PHOSPHATASE 61 IU/L (42-121); ALT ALANINE AMINOTRANSFERASE 19 IU/L (10-60); AST ASPARTATE AMINOTRANSFERASE 19 IU/L (10-42); BILIRUBIN,TOTAL 0.9 mg/dL (0.2-1.0); BUN - BLOOD UREA NITROGEN 14 mg/dL (6-20); CALCIUM 9.6 mg/dL (8.5-10.3); CARBON DIOXIDE - CO2 26 mmol/L (21-32); CHLORIDE 103 mmol/L (101-111); CHOL/HDL RATIO 2.3 (<4.4); CHOLESTEROL 164 mg/dL; CREATININE 0.8 mg/dL (0.4-1.0); GFR - MDRD 70 (>89); GLUCOSE 96 mg/dL (70-100); HDL CHOLESTEROL 71 mg/dL; LDL CHOLESTEROL,CALCULATED 68 mg/dL; POTASSIUM 3.8 mmol/L (3.5-5.0); SODIUM 139 mmol/L (135-145); TOTAL PROTEIN 6.9 g/dL (6.7-8.2); TRIGLYCERIDES 125 mg/dL; VLDL CHOLESTEROL 25 mg/dL
== END 2021-05-25 23:59 | disposition home or self-care (01) ==
LOC: LAB.WCP 07:32
PROVIDERS: ATTEND Physician Assistant Medical
DX: E78.2 Mixed hyperlipidemia (principal)
CPT/HCPCS: 36415; 80053; 80061; 83721

== ENCOUNTER 2021-06-29 08:00 | Outpatient (CLI) | payer MEDICARE, OTHER | END 2021-06-29 23:59 | disposition home or self-care (01) | LOC: LAB.N 08:00 | PROVIDERS: ATTEND Physician Assistant Medical | DX: Z79.01 Long term (current) use of anticoagulants (principal); Z95.2 Presence of prosthetic heart valve ==

== ENCOUNTER 2021-08-16 10:15 | Outpatient (CLI) | payer MEDICARE, OTHER ==
--- NOTE | 2021-08-17 07:46 | Mammography Report ---
BILATERAL DIGITAL SCREENING MAMMOGRAM 3D/2D: 08/16/2021 CLINICAL: Routine screening. Comparison is made to exams dated: 06/16/2019 mammogram, 06/05/2018 mammogram, and 04/21/2017 mammogram - [facility]. The tissue of both breasts is predominantly fatty. No significant masses, calcifications, or other findings are seen in either breast. There has been no significant interval change. IMPRESSION: NEGATIVE There is no mammographic evidence of malignancy. A 1 year screening mammogram is recommended. This exam was interpreted at Station ID: [id number]. NOTE: For mammograms, a report in lay terms will be sent to the patient. Approximately 15% of breast malignancies will not be visualized mammographically. In the management of a palpable breast mass, a negative mammogram must not discourage biopsy of a clinically suspicious lesion. Electronically Signed By: Bridger Silverman M.D. ar/penrad:08/16/2021 16:56:13 ACR BI-RADS Category 1: Negative 3341F PARENCHYMAL PATTERN: (F) - The breast(s) demonstrate(s) diffuse fatty replacement. BI-RADS CATEGORY: (1) - 1 RECOMMENDATION: (ANNUAL) - Recommend routine annual screening mammography. [id number] 1 year screening LATERALITY: (B)
== END 2021-08-16 10:16 | disposition home or self-care (01) ==
LOC: DI 10:15
DX: Z12.31 Encounter for screening mammogram for malignant neoplasm of breast (principal)

== ENCOUNTER 2021-08-17 08:00 | Outpatient (CLI) | payer MEDICARE, OTHER | END 2021-08-17 23:59 | disposition home or self-care (01) | LOC: LAB.N 08:00 | PROVIDERS: ATTEND Physician Assistant Medical | DX: Z79.01 Long term (current) use of anticoagulants (principal); Z95.2 Presence of prosthetic heart valve ==

== ENCOUNTER 2021-08-17 14:18 | Outpatient (CLI) | payer MEDICARE, OTHER ==
--- NOTE | 2021-08-17 17:22 | DEXA Report ---
PROCEDURE: Dexa Spine and/or Hip INDICATIONS: POST MENOPAUSAL TECHNIQUE: Dual energy x-ray absorptiometry (DXA) was performed on a [employer] System. Regions measur ed are the AP Spine, femoral neck, and if needed forearm. COMPARISON: 06/30/2019. FINDINGS: Lumbar Spine: Bone Mineral Density 1.413 g/cm/cm,T score 1.9. There is interval 4% increase in total lumbar spine bone mineral density. Left Hip: Bone Mineral Density 0.902 g/cm/cm,T score -0.8. There is interval 3.2% decrease in left total hip b one mineral density. Left Femoral Neck: Bone Mineral Density 0.830 g/cm/cm, T score -1.5. (T score greater or equal to -1.0: NORMAL) (T score from -1.1 to -2.4: OSTEOPENIA) (T score less than or equal to -2.5 to: OSTEOPOROSIS) Impression: Osteopenia. Patients with diagnosis of osteoporosis or osteopenia should have regular bone mineral density assess ment. For those eligible for Medicare, routine testing is allowed once every 2 years. Testing frequ ency can be increased for patients who have rapidly progressing disease or for those who are receivin g medical therapy to restore bone mass. Reviewed by: Colby Ta MD on 08/17/2021 5:21 PM PDT Approved by: Colby Ta MD on 08/17/2021 5:21 PM PDT Station ID: [id number]
== END 2021-08-17 14:19 | disposition home or self-care (01) ==
LOC: DI 14:18
PROVIDERS: ATTEND Physician Assistant Medical
DX: Z78.0 Asymptomatic menopausal state (principal); M85.88 Other specified disorders of bone density and structure, other site; Z79.01 Long term (current) use of anticoagulants; Z95.2 Presence of prosthetic heart valve

== ENCOUNTER 2021-09-07 08:00 | Outpatient (CLI) | payer MEDICARE, OTHER | END 2021-09-07 23:59 | disposition home or self-care (01) | LOC: LAB.N 08:00 | PROVIDERS: ATTEND Physician Assistant Medical | DX: Z79.01 Long term (current) use of anticoagulants (principal); Z95.2 Presence of prosthetic heart valve ==

== ENCOUNTER 2021-09-28 08:00 | Outpatient (CLI) | payer MEDICARE, OTHER | END 2021-09-28 23:59 | disposition home or self-care (01) | LOC: LAB.N 08:00 | PROVIDERS: ATTEND Physician Assistant Medical | DX: Z79.01 Long term (current) use of anticoagulants (principal); Z95.2 Presence of prosthetic heart valve ==

== ENCOUNTER 2021-10-26 08:00 | Outpatient (CLI) | payer MEDICARE, OTHER | END 2021-10-26 23:59 | disposition home or self-care (01) | LOC: LAB.N 08:00 | PROVIDERS: ATTEND Nurse Practitioner Family | DX: Z79.01 Long term (current) use of anticoagulants (principal); Z95.2 Presence of prosthetic heart valve ==

== ENCOUNTER 2021-11-30 08:00 | Outpatient (CLI) | payer MEDICARE, BC | END 2021-11-30 23:59 | disposition home or self-care (01) | LOC: LAB.N 08:00 | PROVIDERS: ATTEND Physician Assistant Medical | DX: Z79.01 Long term (current) use of anticoagulants (principal); Z95.2 Presence of prosthetic heart valve ==

== ENCOUNTER 2021-12-28 08:00 | Outpatient (CLI) | payer MEDICARE, BC | END 2021-12-28 23:59 | disposition home or self-care (01) | LOC: LAB.WCP 08:00 | PROVIDERS: ATTEND Nurse Practitioner Family | DX: Z79.01 Long term (current) use of anticoagulants (principal); Z95.2 Presence of prosthetic heart valve ==

== ENCOUNTER 2022-01-25 08:00 | Outpatient (CLI) | payer MEDICARE, BC | END 2022-01-25 23:59 | disposition home or self-care (01) | LOC: LAB.WCP 08:00 | PROVIDERS: ATTEND Physician Assistant Medical | DX: Z53.9 Procedure and treatment not carried out, unspecified reason (principal) ==

== ENCOUNTER 2022-02-20 08:00 | Outpatient (CLI) | payer MEDICARE, BC | END 2022-02-20 08:01 | disposition home or self-care (01) | LOC: LAB.WCP 08:00 | PROVIDERS: ATTEND Physician Assistant Medical | DX: Z79.01 Long term (current) use of anticoagulants (principal); Z95.2 Presence of prosthetic heart valve ==

== ENCOUNTER 2022-05-31 08:00 | Outpatient (CLI) | payer MEDICARE, BC | END 2022-05-31 08:01 | disposition home or self-care (01) | LOC: LAB.N 08:00 | PROVIDERS: ATTEND Physician Assistant Medical | DX: Z79.01 Long term (current) use of anticoagulants (principal); Z95.2 Presence of prosthetic heart valve ==

== ENCOUNTER 2022-07-26 08:00 | Outpatient (CLI) | payer MEDICARE, BC | END 2022-07-26 23:59 | disposition home or self-care (01) | LOC: LAB.WCP 08:00 | PROVIDERS: ATTEND Family Medicine | DX: Z79.01 Long term (current) use of anticoagulants (principal); Z95.2 Presence of prosthetic heart valve ==

== ENCOUNTER 2022-08-15 09:29 | Outpatient (CLI) | payer MEDICARE, BC ==
[2022-08-15 09:41] LABS: BASOPHILS % (AUTO) 0.4 %; EOSINOPHILS # (AUTO) 0.1 10^3/uL (0.0-0.7); EOSINOPHILS % (AUTO) 1.5 %; HCT - HEMATOCRIT 40.1 % (37.0-47.0); HGB - HEMOGLOBIN 13.5 g/dL (12.0-16.0); LYMPHOCYTES # (AUTO) 1.3 10^3/uL (1.5-3.5); LYMPHOCYTES % (AUTO) 18.5 %; MEAN CORPUSCULAR HEMOGLOBIN 29.9 pg (27.0-31.0); MEAN CORPUSCULAR HGB CONC 33.7 g/dL (32.0-36.0); MEAN CORPUSCULAR VOLUME 88.9 fL (81.0-99.0); MEAN PLATELET VOLUME 9.2 fL (7.9-10.8); MONOCYTES # (AUTO) 0.4 10^3/uL (0.0-1.0); MONOCYTES % (AUTO) 6.1 %; NEUTROPHILS % (AUTO) 73.2 %; PLT - PLATELET COUNT 205 10^3/uL (130-450); RED BLOOD COUNT 4.51 10^6/uL (4.20-5.40); RED CELL DISTRIBUTION WIDTH 13.9 % (12.0-15.0); WHITE BLOOD COUNT 6.9 x10^3/uL (4.8-10.8)
[2022-08-15 10:10] LABS: THYROID STIMULATING HORMONE 1.63 uIU/mL (0.34-5.60)
[2022-08-15 10:40] LABS: ALBUMIN 4.2 g/dL (3.2-5.5); ALBUMIN/GLOBULIN RATIO 1.4 (1.0-2.2); ALKALINE PHOSPHATASE 61 IU/L (42-121); ALT ALANINE AMINOTRANSFERASE 17 IU/L (10-60); AST ASPARTATE AMINOTRANSFERASE 17 IU/L (10-42); BILIRUBIN,TOTAL 0.7 mg/dL (0.2-1.0); BUN - BLOOD UREA NITROGEN 12 mg/dL (6-20); CALCIUM 9.9 mg/dL (8.5-10.3); CARBON DIOXIDE - CO2 27 mmol/L (21-32); CHLORIDE 105 mmol/L (101-111); CHOL/HDL RATIO 2.5 (<4.4); CHOLESTEROL 143 mg/dL; CREATININE 0.8 mg/dL (0.4-1.0); GFR - MDRD 70 (>89); GLUCOSE 102 mg/dL (70-100); HDL CHOLESTEROL 57 mg/dL; LDL CHOLESTEROL,CALCULATED 61 mg/dL; LDL/HDL RATIO 1.1 (<4.4); POTASSIUM 3.9 mmol/L (3.5-5.0); SODIUM 138 mmol/L (135-145); TOTAL PROTEIN 7.2 g/dL (6.7-8.2); TRIGLYCERIDES 126 mg/dL; VLDL CHOLESTEROL 25 mg/dL
== END 2022-08-15 09:30 | disposition home or self-care (01) ==
LOC: LAB 09:29
PROVIDERS: ATTEND Physician Assistant Medical
DX: E78.2 Mixed hyperlipidemia (principal); Z95.2 Presence of prosthetic heart valve; Z79.899 Other long term (current) drug therapy
CPT/HCPCS: 36415; 80053; 80061; 83721; 84443; 85025

== ENCOUNTER 2022-08-15 09:31 | Outpatient (CLI) | payer MEDICARE, BC ==
--- NOTE | 2022-08-16 12:15 | Mammography Report ---
BILATERAL DIGITAL SCREENING MAMMOGRAM 3D/2D: 08/15/2022 CLINICAL: Routine screening. Comparison is made to exams dated: 08/16/2021 mammogram, 06/16/2019 mammogram, 06/05/2018 mammogram, 05/10 mammogram, 04/21/2017 mammogram, and 04/15/2016 mammogram - [facility]. Both breasts are almost entirely fatty (category a/<25% glandular tissue). No significant masses, calcifications, or other findings are seen in either breast. There has been no significant interval change. IMPRESSION: NEGATIVE There is no mammographic evidence of malignancy. A 1 year screening mammogram is recommended. Based on the Tyrer Cuzick model (a risk assessment model) the patients lifetime risk is 1.9% and her 10 year risk is 1.7%. According to the ACR, ACS, and NCCN guidelines, an annual breast MRI exam hal g with mammogram is recommended if the patients lifetime risk is 20% or greater. This exam was interpreted at Station ID: [id number]. NOTE: For mammograms, a report in lay terms will be sent to the patient. Approximately 15% of breast malignancies will not be visualized mammographically. In the management of a palpable breast mass, a negative mammogram must not discourage biopsy of a clinically suspicious lesion. Electronically Signed By: David patel/dima:08/15/2022 12:43:29 ACR BI-RADS Category 1: Negative 3341F PARENCHYMAL PATTERN: (F) - The breast(s) demonstrate(s) diffuse fatty replacement. BI-RADS CATEGORY: (1) - 1 RECOMMENDATION: (ANNUAL) - Recommend routine annual screening mammography. [id number] 1 year screening LATERALITY: (B)
== END 2022-08-15 09:32 | disposition home or self-care (01) ==
LOC: DI 09:31
DX: Z12.31 Encounter for screening mammogram for malignant neoplasm of breast (principal)

== ENCOUNTER 2022-09-20 08:00 | Outpatient (CLI) | payer MEDICARE, BC | END 2022-09-20 23:59 | disposition home or self-care (01) | LOC: LAB.WCP 08:00 | PROVIDERS: ATTEND Family Medicine | DX: Z79.01 Long term (current) use of anticoagulants (principal); Z95.2 Presence of prosthetic heart valve ==

== ENCOUNTER 2022-09-27 08:00 | Outpatient (CLI) | payer MEDICARE, BC | END 2022-09-27 23:59 | disposition home or self-care (01) | LOC: LAB.WCP 08:00 | PROVIDERS: ATTEND Family Medicine | DX: Z79.01 Long term (current) use of anticoagulants (principal); Z95.2 Presence of prosthetic heart valve ==

== ENCOUNTER 2022-10-04 08:00 | Outpatient (CLI) | payer MEDICARE, BC | END 2022-10-04 23:59 | disposition home or self-care (01) | LOC: LAB.WCP 08:00 | PROVIDERS: ATTEND Family Medicine | DX: Z79.01 Long term (current) use of anticoagulants (principal); Z95.2 Presence of prosthetic heart valve ==

== ENCOUNTER → 2022-10-25 | Outpatient (CLI) | payer MEDICARE, BC | LOC: LAB.WCP 08:00 | PROVIDERS: ATTEND Physician Assistant | DX: Z79.01 Long term (current) use of anticoagulants (principal); Z95.2 Presence of prosthetic heart valve ==

== ENCOUNTER 2022-11-29 08:00 | Outpatient (CLI) | payer MEDICARE, BC | END 2022-11-29 08:01 | disposition home or self-care (01) | LOC: LAB.WCP 08:00 | PROVIDERS: ATTEND Family Medicine | DX: Z79.01 Long term (current) use of anticoagulants (principal); Z95.2 Presence of prosthetic heart valve ==

== ENCOUNTER 2022-12-13 08:00 | Outpatient (CLI) | payer MEDICARE, BC | END 2022-12-13 23:59 | disposition home or self-care (01) | LOC: LAB.WCP 08:00 | PROVIDERS: ATTEND Family Medicine | DX: Z79.899 Other long term (current) drug therapy (principal); Z79.01 Long term (current) use of anticoagulants ==

== ENCOUNTER 2022-12-25 08:00 | Outpatient (CLI) | payer MEDICARE, BC | END 2022-12-25 23:59 | disposition home or self-care (01) | LOC: LAB.WCP 08:00 | PROVIDERS: ATTEND Family Medicine | DX: Z79.01 Long term (current) use of anticoagulants (principal); Z95.2 Presence of prosthetic heart valve ==

== ENCOUNTER 2023-02-21 08:00 | Outpatient (CLI) | payer MEDICARE, BC | END 2023-02-21 23:59 | disposition home or self-care (01) | LOC: LAB.N 08:00 | PROVIDERS: ATTEND Physician Assistant Medical | DX: Z79.01 Long term (current) use of anticoagulants (principal); Z95.2 Presence of prosthetic heart valve ==

== ENCOUNTER 2023-03-28 08:00 | Outpatient (CLI) | payer MEDICARE, BC | END 2023-03-28 23:59 | disposition home or self-care (01) | LOC: LAB.N 08:00 | PROVIDERS: ATTEND Physician Assistant Medical | DX: Z79.01 Long term (current) use of anticoagulants (principal); Z95.2 Presence of prosthetic heart valve ==

== ENCOUNTER 2023-04-04 08:00 | Outpatient (CLI) | payer MEDICARE, BC | END 2023-04-04 23:59 | disposition home or self-care (01) | LOC: LAB.N 08:00 | PROVIDERS: ATTEND Physician Assistant Medical | DX: Z79.01 Long term (current) use of anticoagulants (principal); Z95.2 Presence of prosthetic heart valve ==

== ENCOUNTER 2023-05-09 08:00 | Outpatient (CLI) | payer MEDICARE, BC | END 2023-05-09 23:59 | disposition home or self-care (01) | LOC: LAB.N 08:00 | PROVIDERS: ATTEND Physician Assistant Medical | DX: Z79.01 Long term (current) use of anticoagulants (principal); Z95.2 Presence of prosthetic heart valve ==

== ENCOUNTER 2023-06-06 08:00 | Outpatient (CLI) | payer MEDICARE, BC | END 2023-06-06 23:59 | disposition home or self-care (01) | LOC: LAB.WCP 08:00 | PROVIDERS: ATTEND Family Medicine | DX: Z79.01 Long term (current) use of anticoagulants (principal); Z95.2 Presence of prosthetic heart valve ==

== ENCOUNTER 2023-08-15 08:10 | Outpatient (CLI) | payer MEDICARE, BC ==
[2023-08-15 08:31] LABS: BASOPHILS % (AUTO) 0.7 %; EOSINOPHILS # (AUTO) 0.1 10^3/uL (0.0-0.7); EOSINOPHILS % (AUTO) 1.4 %; HGB - HEMOGLOBIN 13.3 g/dL (12.0-16.0); LYMPHOCYTES # (AUTO) 1.2 10^3/uL (1.5-3.5); LYMPHOCYTES % (AUTO) 20.9 %; MEAN CORPUSCULAR HEMOGLOBIN 29.7 pg (27.0-31.0); MEAN CORPUSCULAR HGB CONC 33.3 g/dL (32.0-36.0); MEAN CORPUSCULAR VOLUME 89.3 fL (81.0-99.0); MEAN PLATELET VOLUME 9.5 fL (7.9-10.8); MONOCYTES # (AUTO) 0.4 10^3/uL (0.0-1.0); MONOCYTES % (AUTO) 7.6 %; NEUTROPHILS # (AUTO) 3.8 10^3/uL (1.5-6.6); NEUTROPHILS % (AUTO) 69.2 %; PLT - PLATELET COUNT 146 10^3/uL (130-450); RED BLOOD COUNT 4.48 10^6/uL (4.20-5.40); WHITE BLOOD COUNT 5.5 x10^3/uL (4.8-10.8)
[2023-08-15 08:44] LABS: ALBUMIN 4.3 g/dL (3.2-5.5); ALBUMIN/GLOBULIN RATIO 1.7 (1.0-2.2); ALKALINE PHOSPHATASE 55 IU/L (42-121); ALT ALANINE AMINOTRANSFERASE 14 IU/L (10-60); AST ASPARTATE AMINOTRANSFERASE 15 IU/L (10-42); BILIRUBIN,TOTAL 0.5 mg/dL (0.2-1.0); BUN - BLOOD UREA NITROGEN 12 mg/dL (6-20); CALCIUM 10.1 mg/dL (8.5-10.3); CARBON DIOXIDE - CO2 29 mmol/L (21-32); CHLORIDE 108 mmol/L (101-111); CHOL/HDL RATIO 2.1 (<4.4); CHOLESTEROL 145 mg/dL; CREATININE 0.8 mg/dL (0.6-1.3); GFR - MDRD 70 (>89); GLUCOSE 92 mg/dL (74-104); HDL CHOLESTEROL 69 mg/dL; LDL CHOLESTEROL,CALCULATED 54 mg/dL; LDL/HDL RATIO 0.8 (<4.4); POTASSIUM 4.1 mmol/L (3.5-4.5); SODIUM 140 mmol/L (135-145); TOTAL PROTEIN 6.8 g/dL (6.4-8.9); TRIGLYCERIDES 109 mg/dL (48-352); VLDL CHOLESTEROL 22 mg/dL
== END 2023-08-15 08:11 | disposition home or self-care (01) ==
LOC: LAB 08:10
PROVIDERS: ATTEND Physician Assistant Medical
DX: E78.2 Mixed hyperlipidemia (principal); R13.10 Dysphagia, unspecified
CPT/HCPCS: 36415; 80053; 80061; 83721; 85025

== ENCOUNTER 2023-09-29 09:49 | Outpatient (CLI) | payer MEDICARE, BC ==
--- NOTE | 2023-10-01 15:36 | Mammography Report ---
BILATERAL DIGITAL SCREENING MAMMOGRAM 3D/2D: 09/29/2023 CLINICAL: Routine screening. Comparison is made to exams dated: 08/15/2022 mammogram, 08/16/2021 mammogram, 06/16/2019 mammogram, 05/11 mammogram, 05/27/2017 mammogram, and 04/21/2017 mammogram - [facility]. There are scattered areas of fibroglandular density in both breasts (category b / 25%-50% glandular t issue). No significant masses, calcifications, or other findings are seen in either breast. IMPRESSION: NEGATIVE There is no mammographic evidence of malignancy. A 1 year screening mammogram is recommended. Based on the Tyrer Cuzick model (a risk assessment model) the patients lifetime risk is 2.5% and her 10 year risk is 2.5%. According to the ACR, ACS, and NCCN guidelines, an annual breast MRI exam hla g with mammogram is recommended if the patients lifetime risk is 20% or greater. This exam was interpreted at Station ID: [id number]. NOTE: For mammograms, a report in lay terms will be sent to the patient. Approximately 15% of breast malignancies will not be visualized mammographically. In the management of a palpable breast mass, a negative mammogram must not discourage biopsy of a clinically suspicious lesion. Electronically Signed By: Trish Lynn M.D., PH.D antolin/dima:09/30/2023 23:00:26 letter sent: No_Letter ACR BI-RADS Category 1: Negative 3341F PARENCHYMAL PATTERN: (A) - The breast(s) demonstrate(s) scattered fibroglandular densities. BI-RADS CATEGORY: (1) - 1 Mammogram [id number] 1 year screening LATERALITY: (B)
== END 2023-09-29 09:50 | disposition home or self-care (01) ==
LOC: DI 09:49
DX: Z12.31 Encounter for screening mammogram for malignant neoplasm of breast (principal); R92.323 Mammographic fibroglandular density, bilateral breasts

== ENCOUNTER 2023-09-29 09:50 | Outpatient (CLI) | payer MEDICARE, BC ==
--- NOTE | 2023-09-29 13:14 | DEXA Report ---
PROCEDURE: Dexa Spine and/or Hip INDICATIONS: POST MENOPAUSAL TECHNIQUE: Dual energy x-ray absorptiometry (DXA) was performed on a [employer] System. Regions measur ed are the AP Spine, femoral neck, and if needed forearm. COMPARISON: 08/17/2021 FINDINGS: Lumbar Spine: Bone Mineral Density 0.313 g/cm/cm,T score 1.1. Since the most recent prior study, there has been a statistically significant decrease in bone mineral density by 7.1 percent. Left Femoral Neck: Bone Mineral Density 0.765 g/cm/cm, T score -2.0. Left Hip: Bone Mineral Density 0.860 g/cm/cm,T score -1.1. Since the most recent prior study, there has been a statistically significant decrease in bone mineral density by -3.5 percent. (T score greater or equal to -1.0: NORMAL) (T score from -1.1 to -2.4: OSTEOPENIA) (T score less than or equal to -2.5 to: OSTEOPOROSIS) Impression: By WHO criteria, this patient has low bone density (osteopenia). Interval statistical decrease in bone minteral density of the lumbar spine. Interval statistical decr ease in bone minteral density of the hip. Patients with diagnosis of osteoporosis or osteopenia should have regular bone mineral density assess ment. For those eligible for Medicare, routine testing is allowed once every 2 years. Testing frequ ency can be increased for patients who have rapidly progressing disease or for those who are receivin g medical therapy to restore bone mass. Reviewed by: Sean Paul MD on 09/29/2023 1:13 PM PST Approved by: Sean Paul MD on 09/29/2023 1:13 PM PST Station ID: [id number]
== END 2023-09-29 09:51 | disposition home or self-care (01) ==
LOC: DI 09:50
PROVIDERS: ATTEND Physician Assistant Medical
DX: Z78.0 Asymptomatic menopausal state (principal); M85.80 Other specified disorders of bone density and structure, unspecified site

== ENCOUNTER 2023-11-14 08:00 | Outpatient (CLI) | payer MEDICARE, BC | END 2023-11-14 08:01 | disposition home or self-care (01) | LOC: LAB.N 08:00 | PROVIDERS: ATTEND Physician Assistant Medical | DX: Z51.81 Encounter for therapeutic drug level monitoring (principal); Z79.01 Long term (current) use of anticoagulants; Z95.2 Presence of prosthetic heart valve ==

== ENCOUNTER → 2023-12-19 | Outpatient (CLI) | payer MEDICARE, BC | LOC: LAB.N 08:00 | PROVIDERS: ATTEND Physician Assistant Medical | DX: Z51.81 Encounter for therapeutic drug level monitoring (principal); Z79.01 Long term (current) use of anticoagulants; Z95.2 Presence of prosthetic heart valve ==

== ENCOUNTER → 2023-12-26 | Outpatient (CLI) | payer MEDICARE, BC | LOC: LAB.WCP 08:00 | PROVIDERS: ATTEND Physician Assistant Medical | DX: Z51.81 Encounter for therapeutic drug level monitoring (principal); Z79.01 Long term (current) use of anticoagulants; Z95.2 Presence of prosthetic heart valve ==

== ENCOUNTER 2024-01-04 08:00 | Outpatient (CLI) | payer MEDICARE, BC | END 2024-01-04 08:01 | disposition home or self-care (01) | LOC: LAB.WCP 08:00 | PROVIDERS: ATTEND Physician Assistant Medical | DX: Z51.81 Encounter for therapeutic drug level monitoring (principal); Z79.01 Long term (current) use of anticoagulants; Z95.2 Presence of prosthetic heart valve ==

== ENCOUNTER 2024-01-09 08:00 | Outpatient (CLI) | payer MEDICARE, BC | END 2024-01-09 08:01 | disposition home or self-care (01) | LOC: LAB.WCP 08:00 | PROVIDERS: ATTEND Physician Assistant Medical | DX: Z51.81 Encounter for therapeutic drug level monitoring (principal); Z79.01 Long term (current) use of anticoagulants; Z95.2 Presence of prosthetic heart valve ==

== ENCOUNTER 2024-01-19 08:00 | Outpatient (CLI) | payer MEDICARE, BC ==
[2024-01-19 23:26] LABS: BACTERIAL VAGINOSIS DNA NEGATIVE (NEGATIVE); CANDIDA GLABRATA DNA NEGATIVE (NEGATIVE); CANDIDA GROUP DNA NEGATIVE (NEGATIVE); CANDIDA KRUSEI DNA NEGATIVE (NEGATIVE); TRICHOMONAS VAGINALIS DNA NEGATIVE (NEGATIVE)
== END 2024-01-19 23:59 | disposition home or self-care (01) ==
LOC: LAB.WC 08:00
PROVIDERS: ATTEND Nurse Practitioner
DX: N90.89 Other specified noninflammatory disorders of vulva and perineum (principal)
CPT/HCPCS: 81514

== ENCOUNTER → 2024-01-30 | Outpatient (CLI) | payer MEDICARE, BC | LOC: LAB.WCP 08:00 | PROVIDERS: ATTEND Physician Assistant Medical | DX: Z51.81 Encounter for therapeutic drug level monitoring (principal); Z79.01 Long term (current) use of anticoagulants; Z95.2 Presence of prosthetic heart valve ==

== ENCOUNTER 2024-02-05 13:23 | Outpatient (CLI) | payer MEDICARE, BC ==
--- NOTE | 2024-02-05 15:37 | XRAY Report ---
PROCEDURE: Lumbar Spine Bending 2-3V INDICATIONS: BACK PAIN TECHNIQUE: AP & Lateral views of the lumbar spine were acquired, followed by flexion & extension parrish ding views of the lumbar spine. COMPARISON: None. FINDINGS: Bones: Without a AP view, it is assumed that there are 5 [id number] vertebrae are present. Tra ce retrolisthesis of L2 on L3. Trace anterolisthesis of L4 on L5. No vertebral body compression fract ures. No suspicious bony lesions. Multilevel lumbar facet arthropathy. Soft tissues: Overlying bowel gas pattern is normal. No suspicious soft tissue calcifications. Flexion/extension: Diminished range of motion without abnormal motion noted IMPRESSION: Multilevel lumbar facet arthropathy. No acute bony abnormality. Diminished range of tereza on without abnormal motion noted on flexion and extension. Reviewed by: José Miguel Agosto MD on 02/05/2024 3:35 PM PDT Approved by: José Miguel Agosto MD on 02/05/2024 3:35 PM PDT Station ID: [id number]
--- NOTE | 2024-02-05 16:26 | XRAY Report ---
PROCEDURE: Hip w/Pelvis 2-3V LT INDICATIONS: LEFT HIP PAIN TECHNIQUE: An AP view of the pelvis and a frog-leg lateral view of the hip were acquired. COMPARISON: None. FINDINGS: Bones: No fractures or dislocations. No suspicious bony lesions. Mild bilateral hip degenerative ar thritis. Soft tissues: No suspicious soft tissue calcifications or masses. IMPRESSION: Mild bilateral hip degenerative arthritis. No acute bony abnormality. Reviewed by: José Miguel Agosto MD on 02/05/2024 4:24 PM PDT Approved by: José Miguel Agosto MD on 02/05/2024 4:24 PM PDT Station ID: [id number]
== END 2024-02-05 13:24 | disposition home or self-care (01) ==
LOC: DI 13:23
PROVIDERS: ATTEND Nurse Practitioner
DX: M47.816 Spondylosis without myelopathy or radiculopathy, lumbar region (principal); M16.0 Bilateral primary osteoarthritis of hip

== ENCOUNTER 2024-02-18 08:00 | Outpatient (CLI) | payer MEDICARE, BC | END 2024-02-18 08:01 | disposition home or self-care (01) | LOC: LAB.WCP 08:00 | PROVIDERS: ATTEND Physician Assistant Medical | DX: Z51.81 Encounter for therapeutic drug level monitoring (principal); Z79.899 Other long term (current) drug therapy; Z79.01 Long term (current) use of anticoagulants; Z95.2 Presence of prosthetic heart valve ==

== ENCOUNTER 2024-03-05 08:00 | Outpatient (CLI) | payer MEDICARE, BC | END 2024-03-05 08:01 | disposition home or self-care (01) | LOC: LAB.WCP 08:00 | PROVIDERS: ATTEND Physician Assistant Medical | DX: Z53.9 Procedure and treatment not carried out, unspecified reason (principal) ==

== ENCOUNTER 2024-07-30 08:00 | Outpatient (CLI) | payer MEDICARE, BC | END 2024-07-30 23:59 | disposition home or self-care (01) | LOC: LAB.N 08:00 | PROVIDERS: ATTEND Physician Assistant Medical | DX: Z51.81 Encounter for therapeutic drug level monitoring (principal); Z79.01 Long term (current) use of anticoagulants; Z95.2 Presence of prosthetic heart valve ==